=== PATIENT | female | born 1975 | race Caucasian/White ===

== ENCOUNTER 2019-09-24 08:01 | Emergency (ER) | payer OTHER ==
[~2019-09-24] VITALS: Ht 162.6 cm; Wt 65.8 kg
[2019-09-24 08:19] VITALS: Ht 162.6 cm; Wt 65.8 kg
[2019-09-24 09:38] VITALS: BP 110/68
== END 2019-09-24 09:38 | disposition home or self-care (01) ==
LOC: ED 08:01
DX: N39.0 Urinary tract infection, site not specified (principal)